=== PATIENT | female | born 1995 | race American Indian/Alaskan Native ===

== ENCOUNTER 2019-07-25 15:06 | Emergency (ER) | payer OTHER ==
[2019-07-25] MEDS ORDERED: traMADol 50 MG TAB PO ONE (19:55)
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
[2019-07-25 21:34] VITALS: BP 127/77
== END 2019-07-25 21:53 | disposition home or self-care (01) ==
LOC: ED 15:06
DX: S96.912A Strain of unspecified muscle and tendon at ankle and foot level, left foot, initial encounter (principal); J45.909 Unspecified asthma, uncomplicated; Z98.890 Other specified postprocedural states; Z79.899 Other long term (current) drug therapy; Z88.0 Allergy status to penicillin; V03.90XA Pedestrian on foot injured in collision with car, pick-up truck or van, unspecified whether traffic or nontraffic accident, initial encounter; Y93.01 Activity, walking, marching and hiking; Y92.410 Unspecified street and highway as the place of occurrence of the external cause; Y99.8 Other external cause status

== ENCOUNTER 2019-08-13 15:21 | Emergency (ER) | payer OTHER ==
[2019-08-13 15:38] VITALS: BP 104/61
--- NOTE | 2019-08-13 15:48 | Emergency Department Report ---
Chief Complaint: Abdominal Pain Stated Complaint: CONSITPATION Time Seen by Provider: 08/13/19 15:37 - HPI History of Present Illness: Ms. Bowles is a 24 yo female with hx of ventral hernia who presents with constipation for the past 3 days. No abdominal pain, fever, or vomiting. No relief with stool softener. MSE performed and completed. She understands return precautions. Recommended magnesium citrate. On brief examination, soft small reducible ventral hernia just above umbilicus. I provided verbal education regarding the ventral hernia. - Exam Vital Signs: Vital Signs 08/13/19 15:35 Temperature 98.8 F Pulse Rate 92 H Respiratory 16 Rate Blood Pressure 104/61 O2 Sat by Pulse 99 Oximetry MSE screening note: Focused history and physical exam performed. Due to findings the following was ordered: ED Disposition for MSE Clinical Impression: Constipation, Ventral hernia Disposition: MED SCREENING EXAM-LEFT Is pt being admited?: No Does the pt Need Aspirin: No Condition: Stable Instructions: Constipation (ED), Ventral Hernia (ED) Prescriptions: Magnesium Citrate [Citrate of Magnesia] 300 ml PO ONCE #1 bottle Referrals: ANTONIA HALL MD [Staff Physician] - 3-5 Days [facility] [Outside] - 3-5 Days
== END 2019-08-13 16:25 | disposition left against medical advice (07) ==
LOC: ED 15:21
DX: K59.00 Constipation, unspecified (principal); K43.9 Ventral hernia without obstruction or gangrene
CPT/HCPCS: 99283

== ENCOUNTER 2019-10-07 14:32 | Emergency (ER) | payer OTHER ==
[2019-10-07] MEDS ORDERED: ACETAMINOPHEN 325 MG TAB PO ONE (16:33)
--- NOTE | 2019-10-07 16:33 | Event Note ---
ED Screening Note ED Screening Note: lower back pain x 1 weeks mild lower no dyuria This initial assessment/diagnostic orders/clinical plan/treatment(s) is/are subject to change based on patients health status, clinical progression and re- assessment by fellow clinical providers in the ED. Further treatment and workup at subsequent clinical providers discretion. Patient/guardian urged not to elope from the ED as their condition may be serious if not clinically assessed and managed. Initial orders include: ua upt
[2019-10-07 16:59] LABS: Bilirubin,Urine NEG (Negative); Blood,Urine LG (Negative); Color,Urine Straw (Yellow); Protein,Urine <15 mg/dL mg/dL (Negative); Urobilinogen,Urine < 2.0 mg/dL (<2.0)
[2019-10-07 17:02] LABS: HCG Qualitative,Urine Negative (Negative)
--- NOTE | 2019-10-07 19:24 | Emergency Department Report ---
ED Female HPI - General Chief complaint: Urogenital-Female Stated complaint: BLEEDING, BACK PAIN Source: patient Mode of arrival: Ambulatory Limitations: No Limitations - History of Present Illness Initial comments: Patient is A1 and 4-year-old [place] female who presented to the ED with acute onset of persistent suprapubic pain but it is in the lower back with vaginal bleeding for the last 3 days. Patient stated that she was late for her menstrual cycle which usually comes regularly on the of each month but that this time her menstrual cycle started on the of the month but was not the usual heavy cycle but less heavy. Patient states that she has had multiple suprapubic cramps, worsening each time and that it radiates to the low back with persistent nausea and vomiting. Patient denies vaginal discharge, dysuria, urinary frequency and urgency, diarrhea, fever, chills, cough, traumatic injury, heavy lifting, chest pain or shortness of breath, dizziness or syncope. MD Complaint: vaginal bleeding, pelvic pain, other (lower back pain) -: Sudden, days(s) (3) Location: suprapubic, other (lower) Radiation: non-radiating Severity: mild Severity scale (0 -10): 3 Quality: cramping, dull Consistency: intermittent Improves with: none Worsens with: menstrual period Are you Now?: Yes (unsure) Last Menstrual Period: 10/02/19 EDC: 07/08/20 Associated Symptoms: denies other symptoms, vaginal bleeding, abdominal pain (suprapubic), nausea/vomiting. denies: vaginal discharge, fever/chills, headaches, loss of appetite, dysuria, hematuria, rash, seizure, shortness of breath, syncope, weakness, other - Related Data Sexually active: Yes : 5 Para: 4 A: 1 Previous Rx's Medication Instructions Recorded Last Taken Type Methocarbamol [Robaxin] 500 mg PO BID PRN #15 tablet 07/25/19 Unknown Rx Magnesium Citrate [Citrate of 300 ml PO ONCE #1 bottle 08/13/19 Unknown Rx Magnesia] Naproxen [Naprosyn] 500 mg PO BID PRN #20 tablet 10/07/19 Unknown Rx Ondansetron [Zofran Odt] 4 mg PO Q6HR PRN #20 tab.rapdis 10/07/19 Unknown Rx Allergies Allergy/AdvReac Type Severity Reaction Status Date / Time Penicillins Allergy Shortness Verified 07/25/19 15:12 of Breath ED Review of Systems ROS: Stated complaint: BLEEDING, BACK PAIN Other details as noted in HPI Constitutional: denies: chills, fever Eyes: denies: eye pain, eye discharge, vision change ENT: denies: ear pain, throat pain Respiratory: denies: cough, shortness of breath, wheezing Cardiovascular: denies: chest pain, palpitations Endocrine: no symptoms reported Gastrointestinal: abdominal pain, nausea, vomiting. denies: diarrhea Genitourinary: abnormal menses (vaginal bleeding). denies: urgency, dysuria, discharge Musculoskeletal: back pain (lower back pain). denies: joint swelling, arthralgia Skin: denies: rash, lesions Neurological: denies: headache, weakness, paresthesias Psychiatric: denies: anxiety, depression Hematological/Lymphatic: denies: easy bleeding, easy bruising ED Past Medical Hx - Past Medical History Previous Medical History?: Yes Hx Asthma: Yes Additional medical history: umbilical hernia, Vaginal delivery x 4 - Surgical History Past Surgical History?: Yes Additional Surgical History: right knee surgery - Social History Smoking Status: Never Smoker Substance Use Type: Other - Medications Home Medications: Home Medications Medication Instructions Recorded Confirmed Last Taken Type Methocarbamol [Robaxin] 500 mg PO BID PRN #15 tablet 07/25/19 Unknown Rx Magnesium Citrate [Citrate of 300 ml PO ONCE #1 bottle 08/13/19 Unknown Rx Magnesia] Naproxen [Naprosyn] 500 mg PO BID PRN #20 tablet 10/07/19 Unknown Rx Ondansetron [Zofran Odt] 4 mg PO Q6HR PRN #20 tab.rapdis 10/07/19 Unknown Rx ED Physical Exam - General Limitations: No Limitations General appearance: alert, in no apparent distress - Head Head exam: Present: atraumatic, normocephalic, normal inspection - Eye Eye exam: Present: normal appearance, PERRL, EOMI Pupils: Present: normal accommodation - ENT ENT exam: Present: normal exam, normal orophraynx, mucous membranes moist, TM's normal bilaterally, normal external ear exam - Neck Neck exam: Present: normal inspection, full ROM. Absent: tenderness - Respiratory Respiratory exam: Present: normal lung sounds bilaterally. Absent: respiratory distress, wheezes, rales, rhonchi, chest wall tenderness, accessory muscle use, decreased breath sounds, prolonged expiratory - Cardiovascular Cardiovascular Exam: Present: regular rate, normal rhythm, normal heart sounds. Absent: systolic murmur, diastolic murmur, rubs, gallop - GI/Abdominal GI/Abdominal exam: Present: soft, tenderness (palpable moderate suprapubic tenderness), normal bowel sounds. Absent: guarding, rebound, hyperactive bowel sounds, hypoactive bowel sounds - Bi-manual exam: Present: other (pelvic exam declined patient) - Extremities Exam Extremities exam: Present: normal inspection, full ROM, normal capillary refill - Back Exam Back exam: Present: normal inspection, full ROM, tenderness (Palpable moderate lumbosacral paraspinal musculoskeletal tenderness), muscle spasm, paraspinal tenderness. Absent: CVA tenderness (R), CVA tenderness (L) - Neurological Exam Neurological exam: Present: alert, oriented X3, CN II-XII intact, normal gait, reflexes normal - Psychiatric Psychiatric exam: Present: normal affect, normal mood - Skin Skin exam: Present: warm, dry, intact, normal color. Absent: rash ED Course Vital Signs 10/07/19 10/07/19 14:45 17:45 Temperature 98.6 F Pulse Rate 78 Respiratory 18 20 Rate Blood Pressure 128/72 O2 Sat by Pulse 99 Oximetry ED Medical Decision Making - Medical Decision Making This is a A1 24-year-old female who presented to the ED with suprapubic pain that radiates to the low back with vaginal bleeding after being late m enstrual cycle. Patient had suspected that she may be even though her home test was negative one week ago. In the ED, patient is alert and oriented 3 and is not in distress with normal vital signs. Urinalysis shows significant blood in urine but no other abnormalities. The urine beta-hCG is negative. Patient's symptoms are likely due to dysmenorrhea given blood in the urine and a negative eventhough her menstrual cycle was late by a day or 2. Patient was discharged home on pain medication and antiemetics and advised to follow-up with ACCOUNTANT CERTIFIED PUBLIC physician or primary care physician in 5-7 days for reevaluation or return to the ED immediately if symptoms get worse. - Differential Diagnosis ; UTI; threatened miscarriage; menstrual cycle Critical care attestation.: If time is entered above; I have spent that time in minutes in the direct care of this critically ill patient, excluding procedure time. ED Disposition Clinical Impression: Dysmenorrhea, Nausea and vomiting in adult, Spasm of muscle of lower back Disposition: TO HOME OR SELFCARE Is pt being admited?: No Does the pt Need Aspirin: No Condition: Stable Instructions: Dysmenorrhea (ED), Acute Nausea and Vomiting (ED) Additional Instructions: Take medications with food, drink plenty of fluids and follow-up with the [facility] CERTIFIED PUBLIC physician in 5-7 days for reevaluation. Return to the ED immediately if symptoms get West. Prescriptions: Naproxen [Naprosyn] 500 mg PO BID PRN #20 tablet PRN Reason: Pain , Severe (7-10) Ondansetron [Zofran Odt] 4 mg PO Q6HR PRN #20 tab.rapdis PRN Reason: Nausea [facility] ILSA [Primary Care Provider] - 3-5 Days Time of Disposition: 19:21 Print Language: UZBEK
[2019-10-07 19:57] VITALS: BP 122/68
== END 2019-10-07 19:55 | disposition home or self-care (01) ==
LOC: ED 14:32
DX: N94.6 Dysmenorrhea, unspecified (principal); R11.2 Nausea with vomiting, unspecified; M62.830 Muscle spasm of back; J45.909 Unspecified asthma, uncomplicated; Z98.890 Other specified postprocedural states; Z79.899 Other long term (current) drug therapy; Z88.8 Allergy status to other drugs, medicaments and biological substances
CPT/HCPCS: 81001; 81025

== ENCOUNTER 2020-03-12 01:42 | Emergency (ER) | payer OTHER ==
[2020-03-12 01:52] VITALS: BP 123/69
[2020-03-12 02:15] LABS: Basophils % (Auto) 0.4 % (0.0-1.8); Eosinophils # (Auto) 0.2 K/mm3 (0.0-0.4); Eosinophils % (Auto) 2.6 % (0.0-4.3); Hematocrit 38.4 % (30.3-42.9); Hemoglobin 12.6 gm/dl (10.1-14.3); Lymphocytes # (Auto) 2.1 K/mm3 (1.2-5.4); Lymphocytes % (Auto) 24.5 % (13.4-35.0); Mean Corpuscular HGB Conc 33 % (30-34); Mean Corpuscular Volume 83 fl (79-97); Monocytes # (Auto) 0.8 K/mm3 (0.0-0.8); Monocytes % (Auto) 9.4 % (0.0-7.3); Platelet Count 253 K/mm3 (140-440); Red Blood Count 4.62 M/mm3 (3.65-5.03); Red Cell Distribution Width 13.9 % (13.2-15.2)
[2020-03-12 02:30] LABS: Alanine Aminotransferase 12 units/L (7-56); Albumin 3.9 g/dL (3.9-5); BUN/Creatinine Ratio 14; Blood Urea Nitrogen 7 mg/dL (7-17); Calcium 9.4 mg/dL (8.4-10.2); Hemolysis Index 4
[2020-03-12 03:06] LABS: Bilirubin,Urine NEG (Negative); Blood,Urine SM (Negative); Color,Urine Yellow (Yellow); Mucus,Urine FEW /HPF; Protein,Urine <15 mg/dL mg/dL (Negative); Urobilinogen,Urine < 2.0 mg/dL (<2.0)
--- NOTE | 2020-03-12 03:38 | Ultrasound Report ---
TRANSABDOMINAL OB PELVIC ULTRASOUND INDICATION / CLINICAL INFORMATION: Abdominal/pelvic pain. COMPARISON: None available. FINDINGS: There is a single intrauterine with an estimated sonographic gestational age of 13 weeks 4 days by crown-rump length. The heart rate is 160 bpm. I see no evidence of implantation hemorrh age. The right ovary measures 2.7 x 1.8 x 1.4 cm and the left ovary 3.2 x 1.5 x 2.4 cm. There is no eviden ce of adnexal mass or free fluid. IMPRESSION: Single viable 13 week 4 day intrauterine without complication. Signer Name: Slim Li MD Signed: 03/12/2020 3:33 AM Workstation Name: [id number]
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
== END 2020-03-12 07:35 | disposition home or self-care (01) ==
LOC: ED 01:42
DX: O26.891 Other specified pregnancy related conditions, first trimester (principal); R10.30 Lower abdominal pain, unspecified; I10 Essential (primary) hypertension; J45.909 Unspecified asthma, uncomplicated; Z3A.13 13 weeks gestation of pregnancy; Z98.890 Other specified postprocedural states; Z79.899 Other long term (current) drug therapy; Z88.0 Allergy status to penicillin
CPT/HCPCS: 36415; 76801; 80053; 81001; 84702; 84703; 85025

== ENCOUNTER 2020-05-24 17:44 | Outpatient (CLI) | payer OTHER ==
[2020-05-24 18:43] VITALS: BP 119/64
[2020-05-24 20:52] LABS: Bilirubin,Urine NEG (Negative); Blood,Urine NEG (Negative); Color,Urine Yellow (Yellow); Mucus,Urine FEW /HPF; Protein,Urine <15 mg/dL mg/dL (Negative); Urobilinogen,Urine < 2.0 mg/dL (<2.0)
== END 2020-05-24 21:16 | disposition home or self-care (01) ==
LOC: TRG 17:44 → APU 17:48 → TRG 21:16
PROVIDERS: ATTEND Obstetrics & Gynecology
DX: O26.892 Other specified pregnancy related conditions, second trimester (principal); R10.9 Unspecified abdominal pain; Z3A.23 23 weeks gestation of pregnancy
CPT/HCPCS: 59025; 81001

== ENCOUNTER 2020-05-25 15:20 | Observation (INO) | payer OTHER ==
[2020-05-25] MEDS ORDERED: LACTATED RINGERS 1,000 ML IV ONE (17:08)
[2020-05-25] MEDS ORDERED: ONDANSETRON 4 MG/2 ML INJ IV ONE (17:09)
[2020-05-25] MEDS ORDERED: METOCLOPRAMIDE 10 MG/2 ML INJ IV PRN (18:36)
[2020-05-25] MEDS ORDERED: PANTOPRAZOLE 40 MG INJ IV ONE (18:50)
[2020-05-25] MEDS ORDERED: LACTATED RINGERS 1,000 ML IV SCH (19:00)
[2020-05-25] MEDS ORDERED: ONDANSETRON 4 MG/2 ML INJ IV SCH (19:00)
[2020-05-25] MEDS ORDERED: ACETAMINOPHEN 325 MG TAB PO PRN (20:43)
[2020-05-25] MEDS ORDERED: ZOLPIDEM 5 MG TAB PO PRN (20:44)
[2020-05-26 07:12] VITALS: BP 109/54
== END 2020-05-26 09:43 | disposition home or self-care (01) ==
LOC: TRG 15:20 → APU 15:21 → LD 17:08 → TRG 17:08
PROVIDERS: ADMIT Obstetrics & Gynecology; ATTEND Obstetrics & Gynecology
DX: O62.9 Abnormality of forces of labor, unspecified (principal); O21.2 Late vomiting of pregnancy; Z87.59 Personal history of other complications of pregnancy, childbirth and the puerperium; Z3A.23 23 weeks gestation of pregnancy
CPT/HCPCS: 96361; 96374; 96375; C9113; G0378; J2405; J7120

== ENCOUNTER 2020-06-24 02:06 | Outpatient (CLI) | payer OTHER ==
[2020-06-24 02:40] VITALS: BP 124/78
[2020-06-24] MEDS ORDERED: ONDANSETRON 4 MG/2 ML INJ IV PRN (03:14)
[2020-06-24 05:36] LABS: Bacteria,Urine 1+ /HPF (Negative); Bilirubin,Urine NEG (Negative); Blood,Urine NEG (Negative); Color,Urine Yellow (Yellow); Protein,Urine <15 mg/dL mg/dL (Negative); RBC,Urine < 1.0 /HPF (0.0-6.0)
== END 2020-06-24 04:15 | disposition home or self-care (01) ==
LOC: TRG 02:06 → APU 02:07 → TRG 04:15
PROVIDERS: ATTEND Obstetrics & Gynecology
DX: O21.2 Late vomiting of pregnancy (principal); Z3A.28 28 weeks gestation of pregnancy
CPT/HCPCS: 59025; 81001; 96365; J2405; 96374

== ENCOUNTER 2020-07-06 23:53 | Outpatient (CLI) | payer OTHER ==
[2020-07-06] MEDS ORDERED: LACTATED RINGERS 1,000 ML ONE (23:57)
[2020-07-07] MEDS ORDERED: LACTATED RINGERS 500 ML IV ONE (00:07)
[2020-07-07 00:24] VITALS: BP 117/70
[2020-07-07 00:53] LABS: Basophils # (Auto) 0.1 K/mm3 (0.0-0.1); Basophils % (Auto) 0.7 % (0.0-1.8); Eosinophils # (Auto) 0.5 K/mm3 (0.0-0.4); Eosinophils % (Auto) 5.6 % (0.0-4.3); Hemoglobin 12.3 gm/dl (10.1-14.3); Lymphocytes # (Auto) 1.8 K/mm3 (1.2-5.4); Lymphocytes % (Auto) 21.2 % (13.4-35.0); Mean Corpuscular HGB Conc 33 % (30-34); Mean Corpuscular Volume 82 fl (79-97); Monocytes # (Auto) 0.8 K/mm3 (0.0-0.8); Monocytes % (Auto) 9.8 % (0.0-7.3); Platelet Count 245 K/mm3 (140-440); Red Blood Count 4.51 M/mm3 (3.65-5.03); Red Cell Distribution Width 15.2 % (13.2-15.2)
[2020-07-07 00:58] LABS: Amorphous Crystals,Urine Few; Bacteria,Urine 1+ /HPF (Negative); Bilirubin,Urine NEG (Negative); Blood,Urine NEG (Negative); Color,Urine Yellow (Yellow); Mucus,Urine FEW /HPF; Protein,Urine <15 mg/dL mg/dL (Negative)
[2020-07-07 01:33] LABS: Alanine Aminotransferase 14 units/L (7-56); Albumin 3.8 g/dL (3.9-5); Blood Urea Nitrogen 4 mg/dL (7-17); Calcium 9.1 mg/dL (8.4-10.2); Hemolysis Index 179
[2020-07-07 01:38] LABS: BUN/Creatinine Ratio 10
== END 2020-07-07 01:55 | disposition home or self-care (01) ==
LOC: TRG 23:53 → APU 23:55 → TRG 07-07 01:55
PROVIDERS: ATTEND Obstetrics & Gynecology
DX: O21.9 Vomiting of pregnancy, unspecified (principal); O16.3 Unspecified maternal hypertension, third trimester; Z3A.29 29 weeks gestation of pregnancy
CPT/HCPCS: 36415; 59025; 80053; 81001; 85025; J7120; 96360

== ENCOUNTER 2020-08-22 23:33 | Outpatient (CLI) | payer OTHER ==
[2020-08-23 00:50] VITALS: BP 115/69
[2020-08-23 01:10] LABS: Amphetamine Screen,Urine PRESUMPTIVE NEGATIVE; Benzodiazepines Screen,Urine PRESUMPTIVE NEGATIVE; Cannabinoid Screen,Urine PRESUMPTIVE NEGATIVE; Cocaine Screen,Urine PRESUMPTIVE NEGATIVE; Methadone Screen,Urine PRESUMPTIVE NEGATIVE; Opiate Screen,Urine PRESUMPTIVE NEGATIVE
[2020-08-23 01:12] LABS: Bacteria,Urine 1+ /HPF (Negative); Bilirubin,Urine NEG (Negative); Blood,Urine NEG (Negative); Color,Urine Yellow (Yellow); Mucus,Urine FEW /HPF
== END 2020-08-23 02:25 | disposition home or self-care (01) ==
LOC: TRG 23:33 → APU 08-23 → TRG 08-23 02:25
PROVIDERS: ATTEND Obstetrics & Gynecology
DX: Z34.93 Encounter for supervision of normal pregnancy, unspecified, third trimester (principal); Z3A.37 37 weeks gestation of pregnancy
CPT/HCPCS: 59025; 80307; 81001

== ENCOUNTER 2020-08-27 00:24 | Outpatient (CLI) | payer OTHER ==
[2020-08-27 00:52] VITALS: BP 134/62
[2020-08-27] MEDS ORDERED: LACTATED RINGERS 1,000 ML IV ONE (01:10)
[2020-08-27] MEDS ORDERED: METOCLOPRAMIDE 10 MG/2 ML INJ IV ONE (01:35)
[2020-08-27] MEDS ORDERED: ONDANSETRON 4 MG/2 ML INJ IV ONE (01:35)
== END 2020-08-27 03:18 | disposition home or self-care (01) ==
LOC: TRG 00:24 → APU 00:25 → TRG 03:18
PROVIDERS: ATTEND Obstetrics & Gynecology
DX: O62.9 Abnormality of forces of labor, unspecified (principal); O10.013 Pre-existing essential hypertension complicating pregnancy, third trimester; O99.513 Diseases of the respiratory system complicating pregnancy, third trimester; J45.909 Unspecified asthma, uncomplicated; G43.909 Migraine, unspecified, not intractable, without status migrainosus; Z3A.37 37 weeks gestation of pregnancy
CPT/HCPCS: 59025; 96361; 96374; 96375; J2405; J2765; J7120; 96360

== ENCOUNTER 2020-09-01 22:48 | Outpatient (CLI) | payer OTHER ==
[2020-09-01 23:38] VITALS: BP 120/73
[2020-09-02] MEDS: LACTATED RINGERS 1,000 ML IV SCH ×2 (00:10→05:07)
[2020-09-02 01:25] LABS: Amphetamine Screen,Urine PRESUMPTIVE NEGATIVE; Benzodiazepines Screen,Urine PRESUMPTIVE NEGATIVE; Cannabinoid Screen,Urine PRESUMPTIVE NEGATIVE; Cocaine Screen,Urine PRESUMPTIVE NEGATIVE; Methadone Screen,Urine PRESUMPTIVE NEGATIVE; Opiate Screen,Urine PRESUMPTIVE NEGATIVE
[2020-09-02 01:26] LABS: Bacteria,Urine 1+ /HPF (Negative); Bilirubin,Urine NEG (Negative); Blood,Urine NEG (Negative); Color,Urine Yellow (Yellow); Mucus,Urine FEW /HPF; Protein,Urine <15 mg/dL mg/dL (Negative)
--- NOTE | 2020-09-02 04:55 | Ultrasound Report ---
Limited obstetrical ultrasound INDICATION: Term , amniotic fluid evaluation COMPARISON: 03/12/2020 Intrauterine is seen in a cephalic position. Placenta is not well imaged but is free of the internal cervical os. heart rate was documented at 131 bpm. Amniotic fluid volume appears acce ptable for this stage of and ROSY is within normal limits at 15.7 cm. BIOPHYSICAL PROFILE breathing movements: 2/2 movements: 2/2 posture and tone tone: 2/2 Qualitative amniotic fluid volume: 2/2 Total score: 8/8, within normal limits Signer Name: Clinton Vann MD Signed: 09/02/2020 4:50 AM Workstation Name: [id number]
[2020-09-02] MEDS ORDERED: hydrOXYzine HCL 100 MG/2 ML INJ IM ONE (07:28)
== END 2020-09-02 07:15 | disposition left against medical advice (07) ==
LOC: TRG 22:48 → APU 22:58 → TRG 09-02 07:15
PROVIDERS: ATTEND Obstetrics & Gynecology
DX: O62.9 Abnormality of forces of labor, unspecified (principal); Z3A.38 38 weeks gestation of pregnancy
CPT/HCPCS: 76815; 76819; 80307; 81001; 96360; 96361; J7120

== ENCOUNTER 2021-01-02 22:53 | Emergency (ER) | payer OTHER ==
[2021-01-02 23:40] VITALS: BP 127/74
== END 2021-01-03 02:55 | disposition left against medical advice (07) ==
LOC: ED 22:53
DX: M79.604 Pain in right leg (principal); M79.89 Other specified soft tissue disorders; Z53.21 Procedure and treatment not carried out due to patient leaving prior to being seen by health care provider

== ENCOUNTER 2021-02-15 09:54 | Emergency (ER) | payer OTHER ==
[2021-02-15 10:07] VITALS: BP 136/90
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
--- NOTE | 2021-02-15 12:54 | Vascular Lab Report ---
DUPLEX DOPPLER LOWER EXTREMITY VEINS, RIGHT INDICATION / CLINICAL INFORMATION: Right leg pain/5 mths post . TECHNIQUE: Duplex doppler imaging was performed through the veins of the right lower extremity using venous comp ression and other maneuvers. COMPARISON: None available. FINDINGS: RIGHT COMMON FEMORAL VEIN: Negative. RIGHT FEMORAL VEIN: Negative. RIGHT POPLITEAL VEIN: Negative. RIGHT CALF VEINS: Negative. ADDITIONAL FINDINGS: None. IMPRESSION: 1. No sonographic evidence for DVT in the right lower extremity. Signer Name: Nivia Barker MD Signed: 02/15/2021 12:49 PM Workstation Name: [id number]
== END 2021-02-15 13:27 | disposition home or self-care (01) ==
LOC: ED 09:54
DX: M54.41 Lumbago with sciatica, right side (principal); M79.604 Pain in right leg; I10 Essential (primary) hypertension; J45.909 Unspecified asthma, uncomplicated; Z98.890 Other specified postprocedural states; Z79.899 Other long term (current) drug therapy; Z88.0 Allergy status to penicillin

== ENCOUNTER 2021-02-27 22:15 | Emergency (ER) | payer OTHER ==
[2021-02-27 23:05] VITALS: BP 129/83
[2021-02-28] MEDS ORDERED: KETOROLAC 60 MG/2 ML INJ IM ONE (00:38)
[2021-02-28] MEDS ORDERED: predniSONE 20 MG TAB PO ONE (00:38)
--- NOTE | 2021-02-28 01:43 | Emergency Department Report ---
ED Back Pain/Injury HPI - General Chief Complaint: Back Pain/Injury Stated Complaint: BACK PAIN Time Seen by Provider: 02/28/21 00:07 Source: patient Limitations: No Limitations - History of Present Illness Initial Comments: This is a 25-year-old female nontoxic, well nourished in appearance, no acute signs of distress presents to the ED with c/o of acute on chronic lower back pain x4 months. Patient states has history of sciatica nerve pain which is similar symptoms as today. Patient states that pain radiates through to his right lower extremity. Patient denies any trauma. Denies any bladder or bowel instability. Patient denies any urinary symptoms. Denies any fever, chills, nausea, vomiting, headache, stiff neck, chest pain or shortness of breath. Patient denies any numbness or tingling. Denies any allergies. Patient stated allergies to penicillin. MD Complaint: back pain -: month(s) Similar Symptoms Previously: Yes Place: home Radiation: right leg Severity: mild Severity scale (0 -10): 8 Quality: aching Consistency: intermittent Improves With: immobilization, sitting upright Worsens With: movement, walking Context: while lifting, turning/twisting Associated Symptoms: denies other symptoms. denies: confusion, weakness, chest pain, numbness, difficulty walking, cough, difficulty urinating, diaphoresis, incontinence, fever/chills, constipation, headaches, abdominal pain, loss of appetite, malaise, nausea/vomiting, rash, seizure, shortness of breath, syncope - Related Data Previous Rx's Medication Instructions Recorded Last Taken Type Acetaminophen/Codeine [Tylenol 1 tab PO Q4HR PRN #12 tablet 02/15/21 Unknown Rx /Codeine # 3 tab] Ketorolac [Toradol] 10 mg PO Q6H PRN #20 tablet 02/15/21 Unknown Rx methylPREDNISolone [Medrol 4MG 4 mg PO DAILY #1 tab.ds.pk 02/15/21 Unknown Rx DOSEPAK (21 tabs)] Allergies Allergy/AdvReac Type Severity Reaction Status Date / Time Penicillins Allergy Severe Shortness Verified 09/01/20 23:54 of Breath ED Review of Systems ROS: Stated complaint: BACK PAIN Other details as noted in HPI Comment: All other systems reviewed and negative Constitutional: denies: chills, fever Eyes: denies: eye pain, eye discharge, vision change ENT: denies: ear pain, throat pain Respiratory: denies: cough, shortness of breath, wheezing Cardiovascular: denies: chest pain, palpitations Endocrine: no symptoms reported Gastrointestinal: denies: abdominal pain, nausea, diarrhea Genitourinary: denies: urgency, dysuria, discharge Musculoskeletal: back pain. denies: joint swelling, arthralgia Skin: denies: rash, lesions Neurological: denies: headache, weakness, paresthesias Psychiatric: denies: anxiety, depression Hematological/Lymphatic: denies: easy bleeding, easy bruising ED Past Medical Hx - Past Medical History Previous Medical History?: Yes Hx Hypertension: Yes (PIH 2012) Hx Diabetes: No Hx Deep Vein Thrombosis: No Hx Renal Disease: No Hx Sickle Cell Disease: No Hx Seizures: No Hx Asthma: Yes (last attasck 2017) Hx HIV: No Additional medical history: umbilical hernia, Vaginal delivery x 4 - Surgical History Past Surgical History?: Yes Additional Surgical History: right knee surgery - Social History Smoking Status: Never Smoker Substance Use Type: None - Medications Home Medications: Home Medications Medication Instructions Recorded Confirmed Last Taken Type Acetaminophen/Codeine [Tylenol 1 tab PO Q4HR PRN #12 tablet 02/15/21 Unknown Rx /Codeine # 3 tab] Ketorolac [Toradol] 10 mg PO Q6H PRN #20 tablet 02/15/21 Unknown Rx methylPREDNISolone [Medrol 4MG 4 mg PO DAILY #1 tab.ds.pk 02/15/21 Unknown Rx DOSEPAK (21 tabs)] ED Physical Exam - General Limitations: No Limitations General appearance: alert, in no apparent distress - Head Head exam: Present: atraumatic, normocephalic - Eye Eye exam: Present: normal appearance - Neck Neck exam: Present: normal inspection, full ROM. Absent: tenderness, meningismus, lymphadenopathy - Respiratory Respiratory exam: Present: normal lung sounds bilaterally. Absent: respiratory distress, wheezes, rales, rhonchi, stridor, chest wall tenderness, accessory muscle use, decreased breath sounds, prolonged expiratory - Cardiovascular Cardiovascular Exam: Present: regular rate, normal rhythm, tachycardia, normal heart sounds. Absent: irregular rhythm, systolic murmur, diastolic murmur, rubs, gallop - GI/Abdominal GI/Abdominal exam: Present: soft, normal bowel sounds. Absent: distended, tenderness, guarding, rebound, rigid, diminished bowel sounds - Extremities Exam Extremities exam: Present: normal inspection, full ROM, normal capillary refill. Absent: tenderness, pedal edema, joint swelling, calf tenderness - Back Exam Back exam: Present: normal inspection, full ROM, paraspinal tenderness (lumbar paraspinal). Absent: tenderness, CVA tenderness (R), CVA tenderness (L), muscle spasm, vertebral tenderness, rash noted - Expanded Back Exam Expanded Back exam: Absent: saddle anesthesia Back exam: Negative Straight Leg Raising: Left, Right - Neurological Exam Neurological exam: Present: alert, oriented X3, normal gait - Psychiatric Psychiatric exam: Present: normal affect, normal mood - Skin Skin exam: Present: warm, dry, intact, normal color. Absent: rash ED Course Vital Signs 02/27/21 23:03 Temperature 98.5 F Pulse Rate 109 H Respiratory 18 Rate Blood Pressure 129/83 O2 Sat by Pulse 98 Oximetry - Reevaluation(s) Reevaluation #1: 02/28/21 01:42 Patient is speaking in full sentences with no signs of distress noted. ED Medical Decision Making - Medical Decision Making This is a 25-year-old female that presents with low back strain. Patient is stable was examined by me. There is no spinal tenderness. There is no cauda equina syndrome during examination. No bladder or bowel instability. Patient received Toradol 60 mg IM and prednisone in the ED which stated that her symptoms has resolved and subsided. Due to worsening lower back pains with radiation to right lower leg, a CT scan and urine has been obtained but patient refused as she stated she feels much better. Patient was educated of my concerns for further evaluation and treatment but patient still refused and sign AGAINST MEDICAL ADVICE. Patient was referred to Follow-up with a primary care doctor as soon as possible or if symptoms worsen and continue return to emergency room as soon as possible. At time of signing AMA, the patient does not seem toxic or ill in appearance. No acute signs of distress noted. Patient agrees to treatment plan of care. No further questions noted by the patient. This chart is dictated with using [employer] Critical care attestation.: If time is entered above; I have spent that time in minutes in the direct care of this critically ill patient, excluding procedure time. ED Disposition Clinical Impression: Low back pain Qualifiers: Chronicity: unspecified Back pain laterality: unspecified Sciatica presence: unspecified whether sciatica present Qualified Code(s): M54.5 - Low back pain Disposition: LEFT AGAINST MED ADVICE Is pt being admited?: No Does the pt Need Aspirin: No Condition: Undetermined Additional Instructions: Follow-up with a primary care doctor as soon as possible or if symptoms worsen and continue return to emergency room as soon as possible. Your condition may be serious as instructed and educated today in the ER but you decided to leave AGAINST MEDICAL ADVICE. It is highly recommended to see a provider as soon as possible to rule out serious complications that was described to you during your ED stay. Referrals: GLORIA FOSTER MD [Primary Care Provider] - [facility] [Referring] - ANTONIA ESTRADA MD [Staff Physician] - [facility] Forms: AMA Form Time of Disposition: 03:22
== END 2021-02-28 03:23 | disposition left against medical advice (07) ==
LOC: ED 22:15
DX: M54.5 Low back pain (principal); M79.661 Pain in right lower leg; I10 Essential (primary) hypertension; J45.909 Unspecified asthma, uncomplicated; Z98.890 Other specified postprocedural states; Z79.899 Other long term (current) drug therapy; Z88.0 Allergy status to penicillin
CPT/HCPCS: 96372; 99282; J1885; J7512

== ENCOUNTER 2021-05-06 16:03 | Emergency (ER) | payer OTHER ==
[2021-05-06 18:29] VITALS: BP 122/80
--- NOTE | 2021-05-06 18:35 | Emergency Department Report ---
ED Upper Extremity Inj HPI - General Chief Complaint: Extremity Problem,Nontraumatic Stated Complaint: CANT MOVE FINGERS, PAIN Time Seen by Provider: 05/06/21 18:23 Source: patient Mode of arrival: Ambulatory Limitations: No Limitations - History of Present Illness Initial Comments: This is a 26-year-old female nontoxic, well nourished in appearance, no acute signs of distress presents to the ED with c/o of right middle and ringer finger x 1 day. Denies any injuries or trauma. Describes as flexed and pain with extension. Pain worse with movement. Patient denies any numbness, tingling, fever, chills, nausea, vomiting, chest pain, shortness of breath, headache, stiff neck. Patient stated has decreased range of motion due to pain. Allergies includes PCN. MD Complaint: Injury to:: right, finger (middle and ringer fingers) -: days(s) Other Extremity Injury: Fingers: Right Other Injuries: none Severity scale (0 -10): 8 Improves With: immobilization Worsens With: movement of extremity Associated Symptoms: denies other symptoms. denies: weakness, numbness, neck pain, suspects foreign body, nausea/vomiting, heard/felt popping sensat - Related Data Previous Rx's Medication Instructions Recorded Last Taken Type Acetaminophen/Codeine [Tylenol 1 tab PO Q4HR PRN #12 tablet 02/15/21 Unknown Rx /Codeine # 3 tab] Ketorolac [Toradol] 10 mg PO Q6H PRN #20 tablet 02/15/21 Unknown Rx methylPREDNISolone [Medrol 4MG 4 mg PO DAILY #1 tab.ds.pk 02/15/21 Unknown Rx DOSEPAK (21 tabs)] Allergies Allergy/AdvReac Type Severity Reaction Status Date / Time Penicillins Allergy Severe Shortness Verified 09/01/20 23:54 of Breath ketorolac Allergy Swelling Verified 05/06/21 19:53 ED Review of Systems ROS: Stated complaint: CANT MOVE FINGERS, PAIN Other details as noted in HPI Comment: All other systems reviewed and negative Constitutional: denies: chills, fever Eyes: denies: eye pain, eye discharge, vision change ENT: denies: ear pain, throat pain Respiratory: denies: cough, shortness of breath, wheezing Cardiovascular: denies: chest pain, palpitations Endocrine: no symptoms reported Gastrointestinal: denies: abdominal pain, nausea, diarrhea Genitourinary: denies: urgency, dysuria, discharge Musculoskeletal: denies: back pain, joint swelling, arthralgia Skin: denies: rash, lesions Neurological: denies: headache, weakness, paresthesias Psychiatric: denies: anxiety, depression Hematological/Lymphatic: denies: easy bleeding, easy bruising ED Past Medical Hx - Past Medical History Hx Hypertension: Yes (PIH 2013) Hx Diabetes: No Hx Deep Vein Thrombosis: No Hx Renal Disease: No Hx Sickle Cell Disease: No Hx Seizures: No Hx Asthma: Yes (last attasck 2017) Hx HIV: No Additional medical history: umbilical hernia, Vaginal delivery x 4 - Surgical History Additional Surgical History: right knee surgery - Social History Smoking Status: Never Smoker Substance Use Type: None - Medications Home Medications: Home Medications Medication Instructions Recorded Confirmed Last Taken Type Acetaminophen/Codeine [Tylenol 1 tab PO Q4HR PRN #12 tablet 02/15/21 Unknown Rx /Codeine # 3 tab] Ketorolac [Toradol] 10 mg PO Q6H PRN #20 tablet 02/15/21 Unknown Rx methylPREDNISolone [Medrol 4MG 4 mg PO DAILY #1 tab.ds.pk 02/15/21 Unknown Rx DOSEPAK (21 tabs)] ED Physical Exam - General Limitations: No Limitations General appearance: alert, in no apparent distress - Head Head exam: Present: atraumatic, normocephalic - Eye Eye exam: Present: normal appearance - Neck Neck exam: Present: normal inspection, full ROM. Absent: lymphadenopathy - Respiratory Respiratory exam: Absent: respiratory distress - Cardiovascular Cardiovascular Exam: Present: regular rate - Extremities Exam Extremities exam: Present: tenderness, normal capillary refill - Expanded Upper Extremity Exam Right General: Present: normal inspection Shoulder Exam: Present: normal inspection, full ROM. Absent: tenderness, swelling Upper Arm exam: Present: normal inspection, full ROM. Absent: tenderness, swelling Elbow exam: Present: normal inspection, full ROM. Absent: tenderness, swelling Forearm Wrist exam: Present: normal inspection, full ROM. Absent: tenderness, swelling, abrasion, laceration, ecchymosis, deformity, crepidus, dislocation, erythema, tenderness over anatomical snuff box, pain with axial thumb loading Hand Wrist exam: Present: tenderness, swelling, erythema. Absent: full ROM (due to pain), abrasion, laceration, ecchymosis, deformity, crepidus, dislocation, amputation, nail avulsion, subungual hematoma Hand L/R Front: 1 - Positive: other (pain, flexion, and swelling present here) Vascular: Present: normal capillary refill. Absent: vascular compromise (Neurovascular within normal limits) - Back Exam Back exam: Present: full ROM - Neurological Exam Neurological exam: Present: alert, oriented X3, normal gait - Psychiatric Psychiatric exam: Present: normal affect, normal mood - Skin Skin exam: Present: warm, dry, intact, normal color. Absent: rash ED Course Vital Signs 05/06/21 18:27 Temperature 98.3 F Pulse Rate 92 H Respiratory 18 Rate Blood Pressure 122/80 O2 Sat by Pulse 96 Oximetry - Reevaluation(s) Reevaluation #1: 05/06/21 18:49 Patient is speaking in full sentences with no signs of distress noted. - Consultations Consultation #1: 05/06/21 18:35 Patient has been consulted with Dr. Huff about patient history, physical exam, and has examined/seen the patient and agrees to the ED plan of care and stated no initial IV antibiotics until further testing for possible flexor tenosynovitis. Consultation #2: 05/06/21 20:15 Patient has been consulted with Todd Guerra ([facility]) about patient history, physical exam, and labs/imaging results and patient can be transferred to [facility] and will accept patient to services. ED Medical Decision Making - Lab Data Result diagrams: 05/06/21 19:04 05/06/21 19:04 Lab Results 05/06/21 05/06/21 Range/Units 19:04 19:04 WBC 5.0 (4.5-11.0) K/mm3 RBC 4.88 (3.65-5.03) M/mm3 Hgb 13.4 (10.1-14.3) gm/dl Hct 40.5 (30.3-42.9) % MCV 83 (79-97) fl MCH 27 L (28-32) pg MCHC 33 (30-34) % RDW 14.7 (13.2-15.2) % Plt Count 285 (140-440) K/mm3 Lymph % (Auto) 37.5 H (13.4-35.0) % [place] % (Auto) 9.5 H (0.0-7.3) % Eos % (Auto) 2.9 (0.0-4.3) % Baso % (Auto) 0.5 (0.0-1.8) % Lymph # (Auto) 1.9 (1.2-5.4) K/mm3 [place] # (Auto) 0.5 (0.0-0.8) K/mm3 Eos # (Auto) 0.1 (0.0-0.4) K/mm3 Baso # (Auto) 0.0 (0.0-0.1) K/mm3 Seg Neutrophils % 49.6 (40.0-70.0) % Seg Neutrophils # 2.5 (1.8-7.7) K/mm3 ESR 17 (0-20) mm/Hr Sodium 137 (137-145) mmol/L Potassium 4.2 (3.6-5.0) mmol/L Chloride 105.3 (98-107) mmol/L Carbon Dioxide 21 L (22-30) mmol/L Anion Gap 15 mmol/L BUN 10 (7-17) mg/dL Creatinine 0.6 (0.6-1.2) mg/dL Estimated GFR > 60 ml/min BUN/Creatinine Ratio 17 % Glucose 93 (65-100) mg/dL Calcium 9.5 (8.4-10.2) mg/dL Total Bilirubin 0.30 (0.1-1.2) mg/dL AST 17 (5-40) units/L ALT 18 (7-56) units/L Alkaline Phosphatase 93 (35-129) units/L C-Reactive Protein 0.50 (0.00-1.30) mg/dL Total Protein 7.6 (6.3-8.2) g/dL Albumin 4.3 (3.9-5) g/dL Albumin/Globulin Ratio 1.3 % - Radiology Data [facility] [address] [place] [address] XRay Report Signed Patient: CECILIA NUÑEZ MR#: [id number] : 1995 Acct:[id number] Age/Sex: 26 / F ADM Date: 05/06/21 Loc: ED Attending Dr: Ordering Physician: ALISTAIR TSAI NP Date of Service: 05/06/21 Procedure(s): XR hand 3+V RT Accession Number(s): [id number] cc: ALISTAIR TSAI NP Fluoro Time In Minutes: RIGHT HAND 3 VIEWS INDICATION / CLINICAL INFORMATION: finger pain COMPARISON: None available. FINDINGS: BONES / JOINT(S): No acute fracture or subluxation. No significant arthritis. SOFT TISSUES: No significant abnormality. ADDITIONAL FINDINGS: None. Signer Name: Sam Mixon MD Signed: 05/06/2021 7:13 PM Workstation Name: [id number] Transcribed By: ES Dictated By: Sam Mixon MD Electronically Authenticated By: Sam Mixon MD Signed Date/Time: 05/06/211912 DD/ 10 TD/TT: - Medical Decision Making 26-year-old female that presents with tenosynovitis. Patient is stable and was examined by me. Patient consulted with Dr. Huff and patient is transferred to [facility] with acceptance of Dr. Kaminski. Patient received vancomycin but due to penicillin severe allergies, Rocephin has not been administered. Patient was notified of the lab results and imaging results and the transfer process and patient agrees to the ED plan of care. Patient placed on n.p.o. now for possible surgery if to be performed. At time of transfere, the patient does not seem toxic or ill in appearance. No acute signs of distress noted. Patient agrees to treatment plan of care. No further questions noted by the patient. Critical care attestation.: If time is entered above; I have spent that time in minutes in the direct care of this critically ill patient, excluding procedure time. ED Disposition Clinical Impression: Tenosynovitis of right hand Disposition: 04 [facility] Is pt being admited?: No Condition: Stable Time of Disposition: 20:37
--- NOTE | 2021-05-06 19:18 | XRay Report ---
RIGHT HAND 3 VIEWS INDICATION / CLINICAL INFORMATION: finger pain COMPARISON: None available. FINDINGS: BONES / JOINT(S): No acute fracture or subluxation. No significant arthritis. SOFT TISSUES: No significant abnormality. ADDITIONAL FINDINGS: None. Signer Name: Sam Mixon MD Signed: 05/06/2021 7:13 PM Workstation Name: [id number]
[2021-05-06 19:23] LABS: Basophils % (Auto) 0.5 % (0.0-1.8); Eosinophils # (Auto) 0.1 K/mm3 (0.0-0.4); Eosinophils % (Auto) 2.9 % (0.0-4.3); Hematocrit 40.5 % (30.3-42.9); Hemoglobin 13.4 gm/dl (10.1-14.3); Lymphocytes # (Auto) 1.9 K/mm3 (1.2-5.4); Lymphocytes % (Auto) 37.5 % (13.4-35.0); Mean Corpuscular HGB Conc 33 % (30-34); Mean Corpuscular Volume 83 fl (79-97); Monocytes # (Auto) 0.5 K/mm3 (0.0-0.8); Monocytes % (Auto) 9.5 % (0.0-7.3); Platelet Count 285 K/mm3 (140-440); Red Blood Count 4.88 M/mm3 (3.65-5.03); Red Cell Distribution Width 14.7 % (13.2-15.2)
[2021-05-06 19:47] LABS: Alanine Aminotransferase 18 units/L (7-56); Albumin 4.3 g/dL (3.9-5); Blood Urea Nitrogen 10 mg/dL (7-17); Calcium 9.5 mg/dL (8.4-10.2); Hemolysis Index 10
[2021-05-06 19:48] LABS: BUN/Creatinine Ratio 17
[2021-05-06 20:22] LABS: Erythrocyte Sedimentation Rate 17 mm/Hr (0-20)
[2021-05-06] MEDS ORDERED: VANCOMYCIN 1,500 MG in SODIUM CHLORIDE 0.9% 500 ML 500 ML IV ONE (21:34)
[2021-05-06] MEDS ORDERED: MORPHINE 4 MG/1 ML INJ IV ONE (22:17)
== END 2021-05-06 23:00 ==
LOC: ED 16:03
DX: M65.841 Other synovitis and tenosynovitis, right hand (principal); I10 Essential (primary) hypertension; J45.909 Unspecified asthma, uncomplicated; K42.9 Umbilical hernia without obstruction or gangrene; Z98.890 Other specified postprocedural states
CPT/HCPCS: 36415; 73130; 80053; 85025; 85652; 86140; 96365; 96366; 96375; 99285; J2270; J3370; J7040

== ENCOUNTER 2021-05-11 03:22 | Emergency (ER) | payer OTHER ==
--- NOTE | 2021-05-11 04:25 | Event Note ---
ED Screening Note Date of service: 05/11/21 Time: 04:23 ED Screening Note: 26-year-old [id number] female patient presents to the emergency department complaints of painful swelling to the right upper extremity. Patient was recently evaluated in the emergency department for the same symptoms. She was diagnosed with flexor tenosynovitis and transferred to [facility]. She was treated with IV antibiotics and her symptoms seem to improve. Operative intervention was deemed necessary. She was discharged home on oral antibiotics. She is unsure of the name of her antibiotic. She states she has been compliant with her antibiotics. However, her symptoms began to worsen again, prompting her to return to the emergency department. General: Awake, appropriately interactive, no acute distress. Neck: Supple. Full range of motion intact. Cardiovascular: Normal peripheral perfusion. Pulmonary: No respiratory distress. Patient is speaking normally without use of accessory muscles. Skin: No apparent rashes or lesions. Neurological: No facial asymmetry. Speech is clear. Follows commands. Patient is alert and oriented. Musculoskeletal: Painful swelling throughout the right upper extremity. Fingers of the right hand held in flexion at rest. Psych: Cooperative. Appropriate mood and affect. Labs, imaging, peripheral IV access ordered. Choice of antibiotic deferred to additional ED providers following full history and complete physical assessment. Attending emergency physician aware. I have greeted and performed a focused rapid initial assessment of this patient. A comprehensive ED assessment and evaluation of the patient, analysis of all test results, and completion of the medical decision-making process will be conducted by additional ED providers. This initial assessment/diagnostic orders/clinical plan/treatment(s) is/are subject to change based on patients health status, clinical progression and re-assessment. Further treatment and workup at subsequent clinical provider's discretion. Patient/guardian urged not to elope from the ED as their condition may be serious if not clinically assessed and managed.
--- NOTE | 2021-05-11 05:22 | XRay Report ---
RIGHT HAND 3 VIEWS INDICATION: flexor tenosynovitis. COMPARISON: 05/06/2021 FINDINGS: On the lateral image there appears to be a small avulsion fracture at the base of the long finger mid dle phalanx. This is only seen on one view and could be an artifact. Bones are otherwise unremarkable . There appears to be mild soft tissue swelling in the right long finger. IMPRESSION: 1. Questionable small avulsion fracture along the volar aspect of the base of the long finger middle phalanx, correlate with point tenderness. 2. Long finger soft tissue swelling. Signer Name: Ricky Fu MD Signed: 05/11/2021 5:17 AM Workstation Name: [id number]
[2021-05-11 05:41] LABS: Basophils % (Auto) 0.5 % (0.0-1.8); Eosinophils # (Auto) 0.1 K/mm3 (0.0-0.4); Eosinophils % (Auto) 2.1 % (0.0-4.3); Hematocrit 40.1 % (30.3-42.9); Hemoglobin 13.6 gm/dl (10.1-14.3); Lymphocytes # (Auto) 1.7 K/mm3 (1.2-5.4); Lymphocytes % (Auto) 30.4 % (13.4-35.0); Mean Corpuscular HGB Conc 34 % (30-34); Mean Corpuscular Volume 83 fl (79-97); Monocytes # (Auto) 0.5 K/mm3 (0.0-0.8); Monocytes % (Auto) 8.3 % (0.0-7.3); Platelet Count 279 K/mm3 (140-440); Red Blood Count 4.84 M/mm3 (3.65-5.03); Red Cell Distribution Width 14.7 % (13.2-15.2)
[2021-05-11 05:45] LABS: Alanine Aminotransferase 22 units/L (7-56); Albumin 4.4 g/dL (3.9-5); Blood Urea Nitrogen 7 mg/dL (7-17); Calcium 9.2 mg/dL (8.4-10.2); Hemolysis Index 0
[2021-05-11 05:46] LABS: BUN/Creatinine Ratio 10
--- NOTE | 2021-05-11 06:29 | Emergency Department Report ---
HPI - General Chief Complaint: Extremity Injury, Upper Time Seen by Provider: 05/11/21 06:07 - HPI HPI: This is a 26-year-old -[place] female who initially presented here on 05/06/2021 for right finger and/or hand swelling and was subsequently transferred to [facility] with a diagnosis of flexor tenosynovitis. The patient was seen by a [place] orthopedist, Dr. Serna, who evaluated the patient and she was admitted for IV antibiotics and pain control, but did not require any surgical intervention. The patient says that she was discharged home with an antibiotic that "starts with an L." She was put on light duty but was told that she could return to work. Upon returning to work the patient says that she became lightheaded/dizzy and began having swelling to the right side of her face, repeat swelling to the fingers of her right hand and the hand itself. She otherwise has a past medical history of asthma. She has not taken anything else for symptoms prior to presentation. No fever, skin color change, chest pain, shortness of breath, nausea, vomiting. ED Past Medical Hx - Past Medical History Hx Hypertension: Yes (PI 2012) Hx Diabetes: No Hx Deep Vein Thrombosis: No Hx Renal Disease: No Hx Sickle Cell Disease: No Hx Seizures: No Hx Asthma: Yes (last attasck 2017) Hx HIV: No Additional medical history: umbilical hernia, Vaginal delivery x 4 - Surgical History Additional Surgical History: right knee surgery - Social History Smoking Status: Never Smoker Substance Use Type: None - Medications Home Medications: Home Medications Medication Instructions Recorded Confirmed Last Taken Type Acetaminophen/Codeine [Tylenol 1 tab PO Q4HR PRN #12 tablet 02/15/21 Unknown Rx /Codeine # 3 tab] Ketorolac [Toradol] 10 mg PO Q6H PRN #20 tablet 02/15/21 Unknown Rx methylPREDNISolone [Medrol 4MG 4 mg PO DAILY #1 tab.ds.pk 02/15/21 Unknown Rx DOSEPAK (21 tabs)] Famotidine [Pepcid] 20 mg PO BID #6 tablet 05/11/21 Unknown Rx predniSONE [Deltasone] 20 mg PO QDAY #3 tab 05/11/21 Unknown Rx ED Review of Systems ROS: Stated complaint: R HAND SWOLLEN Other details as noted in HPI Comment: All other systems reviewed and negative Constitutional: denies: chills, fever Eyes: denies: eye pain, vision change ENT: denies: ear pain, throat pain Respiratory: denies: cough, shortness of breath Cardiovascular: denies: chest pain, palpitations Gastrointestinal: denies: abdominal pain, vomiting Genitourinary: denies: dysuria, discharge Musculoskeletal: joint swelling. denies: back pain Skin: denies: rash, lesions Neurological: denies: headache, numbness, paresthesias Physical Exam - Physical Exam Physical Exam: GENERAL: The patient is well-developed well-nourished. HENT: Normocephalic. Atraumatic. Patient has moist mucous membranes. Oropharynx is clear. No drooling or trismus. No obvious angioedema. EYES: Extraocular motions are intact. NECK: Supple. Trachea is midline. CHEST/LUNGS: Clear to auscultation. There is no respiratory distress noted. HEART/CARDIOVASCULAR: Regular. There is no tachycardia. There is no murmur. ABDOMEN: Abdomen is soft, nontender. Patient has normal bowel sounds. There is no abdominal distention. SKIN: Skin is warm and dry. There is nonpitting swelling along the right middle finger, but no erythema, ecchymosis, rash or lesions. There is some mild right sided facial swelling. NEURO: The patient is awake, alert, and oriented. The patient is cooperative. The patient has no focal neurologic deficits. Normal speech. MUSCULOSKELETAL: There is tenderness to palpation to the right hand and all fingers of the right hand. The right middle finger is slightly in flexion at rest. Patient has full range of motion other than some mild restriction of full flexion and full extension of the right middle finger secondary to swelling. However, I am easily able to fully extend the right middle finger without any increased pain. Radial pulse +2/4 and capillary refill less than 2 seconds to the affected right upper extremity. ED Medical Decision Making - Lab Data Result diagrams: 05/11/21 05:02 05/11/21 05:02 Lab Results 05/11/21 05/11/21 05/11/21 Range/Units 05:02 05:02 05:02 WBC 5.5 (4.5-11.0) K/mm3 RBC 4.84 (3.65-5.03) M/mm3 Hgb 13.6 (10.1-14.3) gm/dl Hct 40.1 (30.3-42.9) % MCV 83 (79-97) fl MCH 28 (28-32) pg MCHC 34 (30-34) % RDW 14.7 (13.2-15.2) % Plt Count 279 (140-440) K/mm3 Lymph % (Auto) 30.4 (13.4-35.0) % [place] % (Auto) 8.3 H (0.0-7.3) % Eos % (Auto) 2.1 (0.0-4.3) % Baso % (Auto) 0.5 (0.0-1.8) % Lymph # (Auto) 1.7 (1.2-5.4) K/mm3 [place] # (Auto) 0.5 (0.0-0.8) K/mm3 Eos # (Auto) 0.1 (0.0-0.4) K/mm3 Baso # (Auto) 0.0 (0.0-0.1) K/mm3 Seg Neutrophils % 58.7 (40.0-70.0) % Seg Neutrophils # 3.2 (1.8-7.7) K/mm3 Sodium 139 (137-145) mmol/L Potassium 3.4 L (3.6-5.0) mmol/L Chloride 104.3 (98-107) mmol/L Carbon Dioxide 26 (22-30) mmol/L Anion Gap 12 mmol/L BUN 7 (7-17) mg/dL Creatinine 0.7 (0.6-1.2) mg/dL Estimated GFR > 60 ml/min BUN/Creatinine Ratio 10 % Glucose 89 (65-100) mg/dL Lactic Acid 1.20 (0.7-2.0) mmol/L Calcium 9.2 (8.4-10.2) mg/dL Total Bilirubin 0.20 (0.1-1.2) mg/dL AST 17 (5-40) units/L ALT 22 (7-56) units/L Alkaline Phosphatase 102 (35-129) units/L Total Creatine Kinase 104 (30-135) units/L Total Protein 8.3 H (6.3-8.2) g/dL Albumin 4.4 (3.9-5) g/dL Albumin/Globulin Ratio 1.1 % TSH (0.270-4.200) mlU/mL 05/11/21 Range/Units 06:35 WBC (4.5-11.0) K/mm3 RBC (3.65-5.03) M/mm3 Hgb (10.1-14.3) gm/dl Hct (30.3-42.9) % MCV (79-97) fl MCH (28-32) pg MCHC (30-34) % RDW (13.2-15.2) % Plt Count (140-440) K/mm3 Lymph % (Auto) (13.4-35.0) % [place] % (Auto) (0.0-7.3) % Eos % (Auto) (0.0-4.3) % Baso % (Auto) (0.0-1.8) % Lymph # (Auto) (1.2-5.4) K/mm3 [place] # (Auto) (0.0-0.8) K/mm3 Eos # (Auto) (0.0-0.4) K/mm3 Baso # (Auto) (0.0-0.1) K/mm3 Seg Neutrophils % (40.0-70.0) % Seg Neutrophils # (1.8-7.7) K/mm3 Sodium (137-145) mmol/L Potassium (3.6-5.0) mmol/L Chloride (98-107) mmol/L Carbon Dioxide (22-30) mmol/L Anion Gap mmol/L BUN (7-17) mg/dL Creatinine (0.6-1.2) mg/dL Estimated GFR ml/min BUN/Creatinine Ratio % Glucose (65-100) mg/dL Lactic Acid (0.7-2.0) mmol/L Calcium (8.4-10.2) mg/dL Total Bilirubin (0.1-1.2) mg/dL AST (5-40) units/L ALT (7-56) units/L Alkaline Phosphatase (35-129) units/L Total Creatine Kinase (30-135) units/L Total Protein (6.3-8.2) g/dL Albumin (3.9-5) g/dL Albumin/Globulin Ratio % TSH 1.260 (0.270-4.200) mlU/mL - EKG Data -: EKG Interpreted by Ar EKG shows normal: sinus rhythm, axis, intervals, QRS complexes, ST-T waves Rate: normal - EKG Data When compared to previous EKG there are: previous EKG unavailable Interpretation: normal EKG - Radiology Data Radiology results: image reviewed interpreted by me: X-ray of the right hand shows some soft tissue swelling of the middle finger. No signs of osteomyelitis. No subcutaneous air. No obvious fracture. No dislocation. - Medical Decision Making This patient presents to the emergency department with a complaint of some pain and discomfort to the fingers of the right hand, the right hand, as well as some swelling to the right upper extremity and face. The main area of swelling that is appreciated is the right middle finger. There is no erythema, skin color change, ecchymosis, rash, lesion. The patient holds all the fingers slightly in flexion, but she does not appear to have any tenderness to palpation or any discomfort with passive extension. She is neurovascularly intact with radial pulse +2/4 and capillary refill less than 2 seconds. X-ray of the right hand shows some mild soft tissue swelling of the middle finger, but no obvious fracture, no signs of osteomyelitis, no subcutaneous air. Patient's labs have been unremarkable including CBC, metabolic panel, normal thyroid function. EKG appears normal without any morphology consistent with ST elevation myocardial infarction or any arrhythmia. The patient does not appear to have any significant swelling of the rest of her right upper extremity. I might be able to see very mild swelling of the right cheek when compared to the left, but once again there is no skin color change, urticaria, rash or lesions. It is possible the patient has a mild allergic reaction to her medications, or there could be an unknown allergen. She does not have any swelling of the tongue, throat, signs of angioedema or anaphylaxis. Vital signs reassuring throughout her ED course including being afebrile. I am hesitant to switch the patient's antibiotics as I believe the medication she was placed on is Levaquin, which is appropriate for her previously diagnosed flexor tenosynovitis. The Levaquin has both gram-positive and gram-negative coverage, as well as coverage for Pseudomonas. Patient has a significant penicillin allergy, which does not leave many other comparable antibiotics. She has been given a short course of steroids, Pepcid, and encouraged to use [id number] Benadryl as needed. She understands not to use the steroids without continuation of her antibiotics. She has been instructed to follow-up with the orthopedic surgeon she saw through [facility], Dr. Serna. She will return to the emergency department with any worsening of her symptoms or with any acute distress. Critical Care Time: No Critical care attestation.: If time is entered above; I have spent that time in minutes in the direct care of this critically ill patient, excluding procedure time. ED Disposition Clinical Impression: Finger swelling, Facial swelling, Lightheaded Arthralgia Qualifiers: Joint pain location: hand Laterality: right Qualified Code(s): M25.541 - Pain in joints of right hand Hand swelling Qualifiers: Laterality: right Qualified Code(s): M79.89 - Other specified soft tissue disorders Disposition: HOME / SELF CARE / HOMELESS Is pt being admited?: No Condition: Stable Additional Instructions: Please follow-up with a primary care physician in the next few days. I have given you a referral for a local primary care physician, Dr. Bowles, and a primary care clinic, [facility]. Please follow-up with your orthopedic surgeon, Dr. Serna, in the next few days. Take all medications as prescribed. Return to the emergency department with any worsening of your symptoms, new or concerning symptoms not addressed during this current emergency department visit, or with any acute distress. Prescriptions: predniSONE [Deltasone] 20 mg PO QDAY #3 tab Famotidine [Pepcid] 20 mg PO BID #6 tablet Referrals: ADAM SERNA MD [Referring] - 2-3 Days ANTONIA BOWLES MD [Staff Physician] - 2-3 Days [facility] [Provider Group] - 2-3 Days Forms: Work/School Release Form(ED) Time of Disposition: 08:00
[2021-05-11] MEDS ORDERED: FAMOTIDINE 20 MG TAB PO ONE (06:55)
[2021-05-11] MEDS ORDERED: predniSONE 20 MG TAB PO ONE (06:55)
[2021-05-11 07:48] VITALS: BP 139/89
--- NOTE | 2021-05-12 14:24 | Electrocardiograph Report ---
[facility] Test Date: 2021-05-11 Test Time: 06:27:17 Pat Name: CECILIA NUÑEZ Department: Room: Gender: F Gis Engineer: ROMANA : 1995 Requested By: CIARRA RUIZ Order Number: [id number] Reading MD: Comfort Becerra Measurements Intervals [place] Rate: 83 P: 25 ND: 161 QRS: 29 QRSD: 69 T: 2 QT: 341 QTc: 402 Interpretive Statements Sinus rhythm No previous ECG available for comparison Electronically Signed On 05-12-2021 14:24:29 EDT by Comfort Becerra
== END 2021-05-11 08:08 | disposition home or self-care (01) ==
LOC: ED 03:22
DX: M65.80 Other synovitis and tenosynovitis, unspecified site (principal); M79.89 Other specified soft tissue disorders; M25.541 Pain in joints of right hand; R42 Dizziness and giddiness; I10 Essential (primary) hypertension; J45.909 Unspecified asthma, uncomplicated; K42.9 Umbilical hernia without obstruction or gangrene; Z98.890 Other specified postprocedural states
CPT/HCPCS: 36415; 73130; 80053; 82140; 82550; 84443; 85025; 87040; 93005; 99284; J7512

== ENCOUNTER 2021-10-13 18:24 | Emergency (ER) | payer OTHER ==
[2021-10-14 00:11] VITALS: BP 143/80
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
--- NOTE | 2021-10-14 01:20 | XRay Report ---
RIGHT HAND 3 VIEW(S) INDICATION / CLINICAL INFORMATION: pain and swelling COMPARISON: None available. FINDINGS: BONES / JOINT(S): No acute fracture or subluxation. No significant arthritis. SOFT TISSUES: No significant abnormality. ADDITIONAL FINDINGS: None. IMPRESSION: 1. No acute fracture. No significant abnormality. Signer Name: Rickey Corea II, MD Signed: 10/14/2021 1:16 AM Workstation Name: [id number]
== END 2021-10-14 02:07 | disposition home or self-care (01) ==
LOC: ED 18:24
DX: G89.29 Other chronic pain (principal); M79.641 Pain in right hand; I10 Essential (primary) hypertension; J45.909 Unspecified asthma, uncomplicated; Z88.0 Allergy status to penicillin; Z88.8 Allergy status to other drugs, medicaments and biological substances; Z79.899 Other long term (current) drug therapy
CPT/HCPCS: 99283

== ENCOUNTER 2021-11-06 02:18 | Emergency (ER) | payer SELFPAY ==
--- NOTE | 2021-11-06 02:29 | Emergency Department Report ---
ED Female HPI - General Chief complaint: Vaginal Bleeding Stated complaint: Vaginal bleeding, I do not know if I am Time Seen by Provider: 11/06/21 02:26 Source: patient Mode of arrival: Ambulatory Limitations: No Limitations - History of Present Illness Initial comments: During the history and physical examination, I am chaperoned by teacher of the hearing impaired Mariela Cruz The patient is a 26-year-old female, who reports that she is 7, para 2, last menstrual period 2 months ago, resenting to the ER with a complaint of a few hours of vaginal bleeding, and cramping. She denies additional complaints including vomiting, diarrhea, and urinary symptoms. Patient does not currently have an outpatient [facility] doctor. MD Complaint: vaginal bleeding -: Gradual Location: suprapubic Severity: mild Quality: cramping Consistency: constant Improves with: none Worsens with: none - Related Data Sexually active: Yes Previous Rx's Medication Instructions Recorded Last Taken Type Ketorolac [Toradol] 10 mg PO Q6H PRN #20 tablet 02/15/21 Unknown Rx Famotidine [Pepcid] 20 mg PO BID #6 tablet 05/11/21 Unknown Rx methylPREDNISolone [Medrol 4MG 4 mg PO DAILY #1 tab.ds.pk 10/14/21 Unknown Rx DOSEPAK (21 tabs)] traMADoL [Ultram] 50 mg PO Q6HR PRN #12 tablet 10/14/21 Unknown Rx Allergies Allergy/AdvReac Type Severity Reaction Status Date / Time Penicillins Allergy Severe Shortness Verified 11/06/21 02:40 of Breath ketorolac Allergy Swelling Verified 11/06/21 02:40 naproxen Allergy Swelling Verified 11/06/21 02:40 ondansetron [From Zofran] Allergy Swelling Verified 11/06/21 02:40 ED Review of Systems ROS: Stated complaint: PELVIC PAIN AND VAGINAL BLEEDING Other details as noted in HPI Comment: All other systems reviewed and negative Genitourinary: as per HPI, other (Vaginal bleeding). denies: frequency, hematuria, discharge ED Past Medical Hx - Past Medical History Previous Medical History?: Yes Hx Hypertension: Yes (PIH 2012) Hx Diabetes: No Hx Deep Vein Thrombosis: No Hx Renal Disease: No Hx Sickle Cell Disease: No Hx Seizures: No Hx Asthma: Yes (last attasck 2017) Hx HIV: No Additional medical history: umbilical hernia, Vaginal delivery x 4 - Surgical History Past Surgical History?: Yes Additional Surgical History: right knee surgery - Social History Smoking Status: Never Smoker Substance Use Type: None - Medications Home Medications: Home Medications Medication Instructions Recorded Confirmed Last Taken Type Ketorolac [Toradol] 10 mg PO Q6H PRN #20 tablet 02/15/21 Unknown Rx Famotidine [Pepcid] 20 mg PO BID #6 tablet 05/11/21 Unknown Rx methylPREDNISolone [Medrol 4MG 4 mg PO DAILY #1 tab.ds.pk 10/14/21 Unknown Rx DOSEPAK (21 tabs)] traMADoL [Ultram] 50 mg PO Q6HR PRN #12 tablet 10/14/21 Unknown Rx ED Physical Exam - General Limitations: No Limitations General appearance: alert, in no apparent distress - Head Head exam: Present: atraumatic, normocephalic - Eye Eye exam: Present: normal appearance, EOMI. Absent: nystagmus - ENT ENT exam: Present: normal exam, normal orophraynx, mucous membranes moist, normal external ear exam - Neck Neck exam: Present: normal inspection, full ROM. Absent: tenderness, meningismus - Respiratory Respiratory exam: Present: normal lung sounds bilaterally. Absent: respiratory distress, wheezes, rales, rhonchi, stridor, decreased breath sounds - Cardiovascular Cardiovascular Exam: Present: regular rate, normal rhythm, normal heart sounds. Absent: bradycardia, tachycardia, irregular rhythm, systolic murmur, diastolic murmur, rubs, gallop - GI/Abdominal GI/Abdominal exam: Present: soft. Absent: distended, tenderness, guarding, rebound, rigid, pulsatile mass - External exam: Present: normal external exam, bleeding, other (Chaperoned by Mariela Cruz) - Extremities Exam Extremities exam: Present: normal inspection, full ROM, other (2+ pulses noted in the bilateral upper and lower extremities. There is no palpable cord. negative Homans sign. Muscular compartments are soft. The pelvis is stable.). Absent: pedal edema, calf tenderness - Back Exam Back exam: Present: normal inspection, full ROM. Absent: tenderness, CVA tenderness (R), CVA tenderness (L), paraspinal tenderness, vertebral tenderness - Neurological Exam Neurological exam: Present: alert, oriented X3, normal gait, other (No facial droop. Tongue midline. Extraocular movements intact bilaterally. Facial sensation intact to light touch in V1, V2, V3 distribution bilaterally. 5 and a 5 strength in 4 extremities. Sensation intact to light touch in 4 extr emities.). Absent: motor sensory deficit - Psychiatric Psychiatric exam: Present: normal affect, normal mood - Skin Skin exam: Present: warm, dry, intact, normal color. Absent: rash ED Course Vital Signs 11/06/21 02:42 Temperature 98.7 F Pulse Rate 84 Respiratory 18 Rate Blood Pressure 115/64 [Left] O2 Sat by Pulse 99 Oximetry - Reevaluation(s) Reevaluation #1: 11/06/21 03:17 Differential diagnosis, including but not limited to: , miscarriage, threatened miscarriage, dysfunctional uterine bleeding, menstruation Assessment and plan: 26-year-old female, who is afebrile, with reassuring vital signs, with no abdominal tenderness, rebound, guarding or peritoneal signs, with scant vaginal bleeding from the vaginal vault, presenting to the ER today with a complaint of vaginal bleeding, possibly being , LMP approximately 2 months ago. No irritative or obstructive urinary symptoms. Obtain appropriate laboratory studies, and quantitative hCG. Treat patient's symptoms. If , obtain obstetrics ultrasound. If not , outpatient follow-up with gynecology. Reassess. 11/06/21 03:44 hCG negative. CBC unremarkable. Vital signs stable. Abdomen soft and benign, without rebound, guarding or peritoneal signs. Outpatient follow-up with gynecology for irregular menstruation. ED Medical Decision Making - Lab Data Result diagrams: 11/06/21 02:44 Vital Signs 11/06/21 02:42 Temperature 98.7 F Pulse Rate 84 Respiratory 18 Rate Blood Pressure 115/64 [Left] O2 Sat by Pulse 99 Oximetry Lab Results 11/06/21 Range/Units 02:44 WBC 5.1 (4.5-11.0) K/mm3 RBC 4.42 (3.65-5.03) M/mm3 Hgb 12.3 (10.1-14.3) gm/dl Hct 35.5 (30.3-42.9) % MCV 80 (79-97) fl MCH 28 (28-32) pg MCHC 35 H (30-34) % RDW 14.9 (13.2-15.2) % Plt Count 279 (140-440) K/mm3 Vital Signs (72 hours) 11/06/21 02:42 Temperature 98.7 F Pulse Rate 84 Respiratory 18 Rate Blood Pressure 115/64 [Left] O2 Sat by Pulse 99 Oximetry Critical care attestation.: If time is entered above; I have spent that time in minutes in the direct care of this critically ill patient, excluding procedure time. ED Disposition Clinical Impression: Negative test, Menstruation Disposition: HOME / SELF CARE / HOMELESS Is pt being admited?: No Does the pt Need Aspirin: No Condition: Stable Instructions: Menstruation Additional Instructions: Laboratory studies indicated normal blood counts, and a negative test. Patient is not today. The patient is likely experiencing menstruation. We recommend follow-up with an outpatient resolution rep for routin e gynecologic health maintenance. Follow-up within the next 2 to 4 weeks. Please return to the emergency room right away with new pain, worsened pain, migration of pain, projectile vomiting, change in mental status, confusion, inability tolerate liquid feeds, new, worsened or different symptoms not present on the initial emergency room evaluation Referrals: [facility] [Provider Group] - 3-5 Days [facility] [Provider Group] - 3-5 Days [facility] [Provider Group] - 3-5 Days Forms: Work/School Release Form(ED)
[2021-11-06 03:13] LABS: Hematocrit 35.5 % (30.3-42.9); Hemoglobin 12.3 gm/dl (10.1-14.3); Mean Corpuscular HGB Conc 35 % (30-34); Mean Corpuscular Volume 80 fl (79-97); Platelet Count 279 K/mm3 (140-440); Red Blood Count 4.42 M/mm3 (3.65-5.03); Red Cell Distribution Width 14.9 % (13.2-15.2)
[2021-11-06] MEDS ORDERED: ACETAMINOPHEN 500 MG TAB PO ONE (03:18)
[2021-11-06 04:59] VITALS: BP 122/76
== END 2021-11-06 04:13 | disposition home or self-care (01) ==
LOC: ED 02:18
DX: Z32.02 Encounter for pregnancy test, result negative (principal); N92.0 Excessive and frequent menstruation with regular cycle; I10 Essential (primary) hypertension; J45.909 Unspecified asthma, uncomplicated; Z98.890 Other specified postprocedural states; Z88.0 Allergy status to penicillin; Z88.5 Allergy status to narcotic agent; Z88.8 Allergy status to other drugs, medicaments and biological substances
CPT/HCPCS: 36415; 84702; 85027; 86850; 86900; 86901; 99283

== ENCOUNTER 2021-12-27 22:20 | Emergency (ER) | payer OTHER ==
[2021-12-27 22:34] VITALS: BP 124/79
== END 2021-12-28 06:56 | disposition left against medical advice (07) ==
LOC: ED 22:20
DX: R10.9 Unspecified abdominal pain (principal); Z53.21 Procedure and treatment not carried out due to patient leaving prior to being seen by health care provider

== ENCOUNTER 2022-01-25 20:24 | Emergency (ER) | payer OTHER ==
[2022-01-25 21:14] VITALS: BP 139/72
[2022-01-25 21:44] LABS: Basophils % (Auto) 0.5 % (0.0-1.8); Eosinophils # (Auto) 0.2 K/mm3 (0.0-0.4); Eosinophils % (Auto) 2.9 % (0.0-4.3); Hematocrit 38.1 % (30.3-42.9); Hemoglobin 12.6 gm/dl (10.1-14.3); Lymphocytes # (Auto) 1.9 K/mm3 (1.2-5.4); Lymphocytes % (Auto) 25.2 % (13.4-35.0); Mean Corpuscular HGB Conc 33 % (30-34); Mean Corpuscular Volume 82 fl (79-97); Monocytes # (Auto) 0.8 K/mm3 (0.0-0.8); Platelet Count 322 K/mm3 (140-440); Red Blood Count 4.63 M/mm3 (3.65-5.03); Red Cell Distribution Width 14.6 % (13.2-15.2)
[2022-01-25 22:04] LABS: Alanine Aminotransferase 10 units/L (7-56); Albumin 4.3 g/dL (3.9-5); Blood Urea Nitrogen 5 mg/dL (7-17); Calcium 9.2 mg/dL (8.4-10.2); Hemolysis Index 8
[2022-01-25 22:05] LABS: BUN/Creatinine Ratio 8
[2022-01-26 01:24] LABS: Bilirubin,Urine NEG (Negative); Blood,Urine NEG (Negative); Color,Urine Yellow (Yellow); Protein,Urine <15 mg/dL mg/dL (Negative); Urobilinogen,Urine < 2.0 mg/dL (<2.0)
== END 2022-01-27 06:27 | disposition left against medical advice (07) ==
LOC: ED 20:24
DX: O26.891 Other specified pregnancy related conditions, first trimester (principal); O21.8 Other vomiting complicating pregnancy; R10.2 Pelvic and perineal pain; Z3A.01 Less than 8 weeks gestation of pregnancy; Z53.21 Procedure and treatment not carried out due to patient leaving prior to being seen by health care provider
CPT/HCPCS: 36415; 80053; 81001; 84703; 85025

== ENCOUNTER 2022-04-30 22:58 | Outpatient (CLI) | payer OTHER ==
[2022-04-30 23:35] VITALS: BP 110/66
[2022-05-01 00:16] LABS: Bacteria,Urine 1+ /HPF (Negative); Mucus,Urine FEW /HPF
[2022-05-01 00:20] LABS: Color,Urine Yellow (Yellow)
--- NOTE | 2022-05-01 01:03 | Ultrasound Report ---
US OB follow up INDICATION / CLINICAL INFORMATION: Limited PNC, pelvic pain, bleeding presumed 20 12/11 COMPARISON: None available. TECHNIQUE: Using a transcutaneous probe, multiple grayscale, color Doppler, and spectral Doppler imag es of the uterus and fetus were captured and stored. FINDINGS: Single cephalic fetus heart rate 157 bpm. Amniotic fluid volume grossly normal largest pocket measuring 5.8 cm. Grade 1 anterior/right lateral placenta is demonstrated without obvious abnormality. The cervix as measured is 3.8 cm Endocervical canal as not well-visualized. measurements as documented on the study result in an estimated composite gestational age of 21 weeks 1 day, EDC 09/10/2022. Estimated weight is 423 g; Growth percentile 82%. IMPRESSION: 1. Single living fetus as detailed. Signer Name: Rickey Corea II, MD Signed: 05/01/2022 12:59 AM Workstation Name: [id number]
== END 2022-04-30 22:59 | disposition home or self-care (01) ==
LOC: TRG 22:58
PROVIDERS: ATTEND Obstetrics & Gynecology Gynecology
DX: O46.92 Antepartum hemorrhage, unspecified, second trimester (principal); O26.893 Other specified pregnancy related conditions, third trimester; R25.2 Cramp and spasm; Z3A.20 20 weeks gestation of pregnancy
CPT/HCPCS: 76816; 81001; 87086

== ENCOUNTER 2022-05-18 19:34 | Outpatient (CLI) | payer OTHER ==
[2022-05-18 20:06] VITALS: BP 98/54
[2022-05-18] MEDS ORDERED: LACTATED RINGERS 500 ML IV ONE (20:07)
== END 2022-05-18 21:07 | disposition home or self-care (01) ==
LOC: TRG 19:34 → APU 19:39 → TRG 21:07
PROVIDERS: ATTEND Obstetrics & Gynecology
DX: O26.892 Other specified pregnancy related conditions, second trimester (principal); R10.9 Unspecified abdominal pain; R51.9 Headache, unspecified; K59.00 Constipation, unspecified; Z3A.23 23 weeks gestation of pregnancy
CPT/HCPCS: 59025